=== PATIENT | female | born 1950 | race Caucasian/White ===

== ENCOUNTER 2017-07-02 02:49 | Emergency (ER) | payer OTHER ==
[2017-07-02 03:01] VITALS: BP 129/61; BMI 44.8
--- NOTE | 2017-07-02 03:19 | DR.GENAD ---
HPI - PCP Primary Care Physician: LEXUS - Complaint/Symptoms Chief Complaint:: BACK PAIN - Nurses notes reviewed Nurses Notes Review: Yes - Source History Provided: Patient - Mode of Arrival Mode of Arrival: Ambulatory - Timing Onset of Chief Complaint: 06/30/17 Came on: Suddenly - Duration Duration: Since Onset How lon Duration: Days - Severity Severity: Mild PMH - PMH Past Medical History: Yes Past Medical History: Coronary Artery Disease, Diabetes Past Surgical History: Yes Surgical History: Angioplasty/Stents, Appendectomy, , Hysterectomy - Family History History of Family Medical Conditions: Yes Family Medical History: Diabetes Mellitus, Cancer, Coronary Artery Disease, Hypertension - Social History Does patient currently use any type of tobacco product: No Have you used tobacco products in the last 12 months: No Type of Tobacco Use: None Does any household member use tobacco: No Alcohol Use: None Do you use any recreational Drugs:: No Lives With: Spouse Lives Where: Home - infectious screening In the last 2 months have you had wt loss of >10#?: NO Have you had fever, night sweats or hemotysis?: No Have you traveled outside the country in the last 6 months?: No Isolation: Standard ROS - Review of Systems Constitutional: No Symptoms Reported Eyes: No Symptoms Reported ENTM: No Symptoms Reported Respiratoy: No Symptoms Reported Cardiovascular: No Symptoms Reported Gastrointestinal/Abdominal: No Symptoms Reported Genitourinary: No Symptoms Reported Neurological: No Symptoms Reported Musculoskeletal: No Symptoms Reported Integumentary: No Symptoms Reported Hematologic/Lymphatic: No Symptoms Reported Endocrine: No Symptoms Reported Psychiatric: No Symptoms Reported All Other Systems: Reviewed and Negative PE - Vital Signs Vitals: Temperature 97.4 F Pulse Rate 66 Respiratory Rate 16 Blood Pressure 129/61 O2 Sat by Pulse Oximetry 97 - General Limitations: No Limitations General Appearance: Alert - Head Head Exam: Normal Inspection - Eyes Eye exam: Normal Appearance - ENT ENT Exam: Normal Exam - Neck Neck Exam: Normal Inspection, Full ROM - Chest Chest Inspection: Normal Inspection - Respiratory Respiratory Exam: Normal Lung Sounds Bilat Respiratory Exam: Bilateral Clear to Auscultation - Cardiovascular Cardiovascular Exam: Regular Rate, Normal Rhythm - Abdominal Exam Abdominal Exam: Normal Inspection, Normal Bowel Sounds, Soft - Extremities Extremities Exam: Normal Inspection, Full ROM - Back Back Exam: Normal Inspection, Full ROM, Tenderness, Vertebral Tenderness (lower lumbar) - Neurologic Neurological Exam: Alert, Oriented X3 - Psychiatric Psychiatric Exam: Normal Affect, Normal Mood - Skin Skin Exam: Warm ROR - XRAY XRAY Interpreted by: Radiologist XRAY Findings: pelvis, Lspine, coccyx all negative acute - Diagnosis Discharge Problem: Back ache Qualifiers: Back pain location: low back pain Chronicity: acute Back pain laterality: bilateral - Discharge Plan Disposition: HOME, SELF-CARE Condition: Stable Prescriptions: Prednisone [Prednisone Tab 10 mg] 10 mg PO BID #12 tab - Follow ups/Referrals Follow ups/Referrals: CHELITA ALBERTS [Primary Care Provider] - 3 days - Instructions Instructions: Back Pain, Adult, Back Exercises, [id number]
[2017-07-02] MEDS ORDERED: ULTRAM PO ONE (03:49)
[2017-07-02] MEDS ORDERED: ULTRAM ONE (03:53)
--- NOTE | 2017-07-02 03:55 | RAD ---
AP pelvis Indication: Fall onto buttocks 3 days ago Findings: The pelvic ring is grossly intact. No acute cortical disruption or malalignment is identifi ed, although the sacrum and coccyx are partially obscured by superimposed bowel gas and fecal materia l. The SI joints and pubic symphysis are intact. Inguinal hernia mesh anchors are noted. Impression: No acute osseous injury of the pelvis. Reported By:
--- NOTE | 2017-07-02 03:56 | RAD ---
Sacrum and coccyx, AP and lateral Indication: Fall onto buttocks 3 days ago Findings: The sacrum and coccyx are obscured by bowel gas and fecal material on the AP views. No acut e cortical disruption or malalignment is identified. Impression: No displaced sacrococcygeal fracture. Reported By:
[2017-07-02] MEDS ORDERED: TORADOL 30 MG VIAL IM ONE (04:04)
[2017-07-02] MEDS ORDERED: TORADOL 60 MG VIAL ONE (04:14)
== END 2017-07-02 04:23 | disposition home or self-care (01) ==
LOC: ER 02:49
DX: M54.89 Other dorsalgia (principal)
CPT/HCPCS: 72170; 72220; 96372; 96375; 99282; J1885